=== PATIENT | male | born 1950 | race Caucasian/White ===

== ENCOUNTER → 2018-04-11 16:01 | Outpatient (CLI) | payer MEDICARE, SELFPAY ==
[2018-04-11 16:39] LABS: Basophils # 0.1 K/mm3 (0-0.2); Basophils % 0.6 % (0.1-2.0); Eosinophils # 0.1 K/mm3 (0.0-0.4); Eosinophils % 1.1 % (0.1-12.0); Hematocrit 50.9 % (42.0-52.0); Hemoglobin 16.7 g/dL (14.1-18.0); Lymphocytes # 1.5 K/mm3 (0.7-4.5); Lymphocytes % 19.4 % (10-50); Mean Corpuscular HGB Conc 32.8 g/dL (31.8-35.4); Mean Corpuscular Hemoglobin 30.8 pg (27.0-31.2); Mean Platelet Volume 7.3 fl (7.4-10.4); Monocytes # 0.4 K/mm3 (0.1-1.0); Monocytes % 5.5 % (1.7-9.3); Neutrophils # 5.8 K/mm3 (1.8-7.8); Neutrophils % 73.5 % (37.0-80.0); Platelet Count 237 K/mm3 (142-424); Red Blood Count 5.42 M/mm3 (4.60-6.20); Red Cell Distribution Width 13.1 % (11.5-17.5); White Blood Count 7.9 K/mm3 (4.8-10.8)
[2018-04-11 17:00] LABS: Alanine Aminotransferase 35 U/L (12-78); Albumin Level 4.6 gm/dL (3.4-5.0); Alkaline Phosphatase 93 U/L (46-116); Amylase 68 U/L (25-115); Aspartate Amino Transferase 27 U/L (15-37); Bilirubin,Direct 0.4 mg/dL (0.0-0.2); Bilirubin,Indirect 1.4 mg/dL (0.0-0.9); Bilirubin,Total 1.8 mg/dL (0.2-1.0); Lipase 265 u/L (73-393); Total Protein,Serum 8.2 gm/dL (6.4-8.2)
== END ==
PROVIDERS: Visit Provider Internal Medicine
DX: R10.13 Epigastric pain (principal)
CPT/HCPCS: 80076; 82150; 83690; 85025

== ENCOUNTER → 2018-04-16 08:56 | Outpatient (CLI) | payer MEDICARE, SELFPAY ==
--- NOTE | 2018-04-16 09:01 | US_ITS ---
US abdomen complete HISTORY: ITS.REASON: ELEVATED BILIRUBIN,EPIGASTRIC PAIN ORDERING PHYSICIAN: Franco Mathis PATIENT AGE: 67 years COMPARISON: None FINDINGS: PANCREAS:The pancreas is poorly demonstrated due to overlying bowel gas and patient's body habitus and may be better visualized with CT if clinically warranted LIVER:No focal liver lesions demonstrated. Homogeneous echogenicity. No intrahepatic biliary ductal dilatation evident. There is appropriate directional blood flow within a nondilated portal vein RIGHT KIDNEY:There is some mild cortical irregularity of the right kidney suggesting scarring. No hydronephrosis LEFT KIDNEY:Unremarkable. No hydronephrosis. Normal size and echogenicity. GALLBLADDER:There has been a prior cholecystectomy. No ductal dilatation. The common bile duct is 3 mm. AORTA:The upper abdominal aorta is slightly prominent at 3 cm. Lower abdominal aorta has an unremarkable appearance at 18 mm. SPLEEN:Unremarkable. Normal size and echogenicity ASCITES:None demonstrated. IMPRESSION: 1. Pancreas not well delineated. 2. Prior cholecystectomy without ductal dilatation. 3. Mild cortical scarring of the right kidney
== END ==
PROVIDERS: PCP Internal Medicine; Visit Provider Internal Medicine
DX: E80.7 Disorder of bilirubin metabolism, unspecified (principal); R10.13 Epigastric pain
CPT/HCPCS: 76700

== ENCOUNTER → 2018-04-20 12:49 | Outpatient (CLI) | payer MEDICARE, SELFPAY ==
--- NOTE | 2018-04-20 12:51 | CT_ITS ---
CT abdomen wo con CLINICAL INDICATION: Midepigastric pain ITS.REASON: EPIGASTRIC PAIN ORDERING PHYSICIAN: Franco Mathis PATIENT AGE: 68 years COMPARISON: None TECHNIQUE: Axial images obtained with sagittal and coronal reformats. All CT scans at the facility use one or more dose reduction, viz: automated exposure control, ma/kV adjustment per patient size (including targeted exams where dose is matched to indication, i.e. head), or iterative reconstruction technique. PROCEDURE: Oral Contrast: None IV Contrast: None . FINDINGS: Lower thorax: No acute finding Postcholecystectomy changes. The liver, adrenal glands, and pancreas have an unremarkable appearance. There is mild splenomegaly at 14 cm. No renal or ureteral calculi. No hydronephrosis. There is an exophytic cyst along the lower pole the left kidney at 19 mm. No intestinal obstruction or free air is evident. The pelvis is not imaged on this study in the appendix is not imaged in its entirety. There are degenerative changes in the lumbar spine with prominent sclerosis of L4-L5 on the right. Small sclerotic lesion involves the right aspect of the ileum at 1 cm and may be due to bone island IMPRESSION: 1. No acute upper abdominal findings. 2. Mild splenomegaly
== END ==
PROVIDERS: PCP Internal Medicine; Visit Provider Internal Medicine
DX: R10.13 Epigastric pain (principal)
CPT/HCPCS: 74150

== ENCOUNTER 2019-08-09 13:20 | Emergency (ER) | payer MEDICARE, SELFPAY ==
[2019-08-09 13:37] VITALS: BP 150/88; PULSE 94; RESP 18; TEMP 36.7; O2SAT 96; BMI 27.1
--- NOTE | 2019-08-09 13:42 | HMH.EDUTC ---
[facility] [place]: Dental [place] Disposition: Home, Self-Care Condition on Discharge: Good Instructions: Tooth Abscess Additional Instructions: Take the medications as directed. GO TO THE ER IF YOU START TO HAVE ANY FEVER OR ANY WORSENING SYMPTOMS You have to get in to see a dentist. If you have trouble finding one you could call back here and I'd try to help you find one. Follow up with your regular doctor also. Prescriptions: Ibuprofen [Ibuprofen 800mg Tablet] 800 mg PO Q8HP PRN #30 tab PRN Reason: Moderate Pain Transmission Status: Received by [facility] clindamycin HCL [Clindamycin HCl 300mg Cap] 300 mg PO Q6 10 Days #40 cap Transmission Status: Received by [facility] Referrals: Franco Mathis [Primary Care Provider] - Time of Disposition: 13:47 Medical Decision Making - Medical Records Medical records reviewed: No: I reviewed the patient's medical records. - Wil Inquiry Pt receiving controlled substance: No Vital Signs: 08/09/19 13:37 08/09/19 13:49 Temperature 98.1 F 98.1 F Temperature Source Oral Pulse Rate 94 H Pulse Rate [Right Brachial] 94 H Respiratory Rate 18 18 Blood Pressure 150/88 H Blood Pressure [Right Arm] 150/88 H Blood Pressure Mean [Right Arm] 108 Blood Pressure Source [Right Arm] Automatic Cuff Blood Pressure Position [Right Arm] Sitting 02 Sat by Pulse Oximetry 96 Oxygen Delivery Method Room Air [facility] [place] - General Stated complaint: tooth pain Time Seen by Provider: 08/09/19 13:42 Mode of Arrival: Ambulatory Source of Information: Patient Limitations: No Limitations Description of Symptoms (Recalled from Triage Doc. by RN): PATIENT C/O TOOTH PAIN (CHIPPED TOOTH) AND FACIAL SWELLING TO LEFT SIDE SINCE YESTERDAY, DENIES FEVER HEENT Symptoms (Recalled from RN notes): Yes Resp Symptoms (Recalled from RN notes): No Skin Symptoms (Recalled from RN notes): No MS Symptoms (Recalled from RN notes): No Functional Status (Recalled from RN notes): WNL - History of Present Illness Provider Complaint: He c/o having multiple dental cavities and a broken tooth. He is having swelling around the broken tooth. The swelling extends up to his right maxillary sinus area. He denies any fever, chills, or malaise. He is allergic to pcn and he has never had rocephin that he knows of. - Related Data Home Medications Medication Instructions Recorded Confirmed Amlodipine Besylate [Amlodipine 5 mg PO DAILY 08/09/19 08/09/19 5mg tab] Losartan Potassium [Cozaar 100mg 100 mg PO DAILY 08/09/19 08/09/19 Tablets] Metoprolol Succinate [Metoprolol 100 mg PO DAILY 08/09/19 08/09/19 Succinate 100mg Tablet*] Previous Rx's Medication Instructions Recorded Ibuprofen [Ibuprofen 800mg 800 mg PO Q8HP PRN #30 tab 08/09/19 Tablet] clindamycin HCL [Clindamycin HCl 300 mg PO Q6 10 Days #40 cap 08/09/19 300mg Cap] Allergies Allergy/AdvReac Type Severity Reaction Status Date / Time Penicillins [PENICILLINS] Allergy Unknown I-RASH Verified 08/09/19 13:42 - Worker's Comp Is this a Worker's Comp case?: No [facility] History - Hepatitis A Screen Drug use history?: No High risk sexual behaviors?: No History of sexually transmitted infection?: No Currently employed?: No Childcare worker?: No Do you have indoor plumbing?: Yes Do you have electricity?: Yes Attestation statement:: This patient has been screened for Hepatitis A risk factors. I have reviewed the patient's past medical history: Yes Laterality Cases: Bilateral: Tonsillectomy - Social History Alcohol Intake: never Occupational Status: other ROS Obtained: Yes All systems reviewed & no additional complaints - Constitutional Constitutional: Denies chills, Denies fever(s), Reports poor appetite, Reports malaise - Eyes Eyes: Denies eye discharge - ENT Ears, Nose, Mouth, and Throat: Reports as per HPI Physical Exam - Ge
[2019-08-09 13:49] VITALS: BP 150/88; PULSE 94; RESP 18; TEMP 36.7; O2SAT 96
== END 2019-08-09 13:53 | disposition home or self-care (01) ==
LOC: ER 13:23 → UTC 13:28
PROVIDERS: Emergency Provider Nurse Practitioner Family; PCP Internal Medicine
DX: K04.7 Periapical abscess without sinus (principal); Z88.0 Allergy status to penicillin; K02.9 Dental caries, unspecified
CPT/HCPCS: G0463; 99201

== ENCOUNTER → 2019-11-15 15:09 | Outpatient (CLI) | payer MEDICARE, SELFPAY ==
--- NOTE | 2019-11-15 15:17 | CT_ITS ---
PROCEDURE: CT HEAD/BRAIN WO CON CLINICAL INDICATION: R/O STROKE,CONFUSION,VISUAL DISTURBANCE COMPARISON: No exams were available for comparison TECHNIQUE: Axial images obtained. All CT scans at the facility use one or more dose reduction, viz: automated exposure control, ma/kV adjustment per patient size (including targeted exams where dose is matched to indication, i.e. head), or iterative reconstruction technique. FINDINGS: No midline shift, mass effect, intracranial hemorrhage, hydrocephalus, or extra-axial fluid collection is evident. The calvarium has an unremarkable appearance. No mastoid effusion. No sinus air-fluid level. IMPRESSION: No acute intracranial finding Dictated by: Tadeo Herman MD 11/15/2019 16:02 Tadeo Herman MD in [place] 11/15/2019 16:02
== END ==
PROVIDERS: PCP Internal Medicine; Visit Provider Internal Medicine
DX: G45.9 Transient cerebral ischemic attack, unspecified (principal); H53.129 Transient visual loss, unspecified eye
CPT/HCPCS: 70450

== ENCOUNTER → 2019-11-19 08:14 | Outpatient (CLI) | payer MEDICARE, SELFPAY ==
--- NOTE | 2019-11-19 08:17 | CA_ITS ---
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 Laterality: Bilateral Study Quality: Excellent Indications: VISUAL DISTURBANCE,FACIAL WEAKNESS Doppler Spectral Velocity Analysis dICA (R) 75.70/31.50 cm/s dICA (L) 70.20/27.40 cm/s Gee (R) 63.90/24.70 cm/s Gee (L) 66.40/26.30 cm/s pICA (R) 60.50/16.10 cm/s pICA (L) 62.00/23.40 cm/s dCCA (R) 71.50/22.10 cm/s dCCA (L) 64.80/18.50 cm/s pCCA (R) 99.90/27.80 cm/s pCCA (L) 63.40/21.80 cm/s Vert (R) 60.80/20.30 cm/s Vert (L) 42.60/11.70 cm/s ICA/CCA 1.10 ICA/CCA 1.10 Findings Duplex evaluation demonstrates stenosis of the right proximal internal carotid artery <20% with PSV <140 cm/sec, EDV <100 cm/sec, and IC/CC Ratio <4.0.Duplex evaluation demonstrates stenosis of the left proximal internal carotid artery <20% with PSV <140 cm/sec, EDV <100 cm/sec, and IC/CC Ratio <4.0.Antegrade flow seen bilateral vertebral arteries. Conclusion Duplex evaluation demonstrates stenosis of the right proximal internal carotid artery <20% with PSV <140 cm/sec, EDV <100 cm/sec, and IC/CC Ratio <4.0.Duplex evaluation demonstrates stenosis of the left proximal internal carotid artery <20% with PSV <140 cm/sec, EDV <100 cm/sec, and IC/CC Ratio <4.0.Antegrade flow seen bilateral vertebral arteries. Electronically signed by : Tadeo Herman MD 11/19/2019 16:24:25
== END ==
PROVIDERS: PCP Internal Medicine; Visit Provider Internal Medicine
DX: R29.810 Facial weakness (principal); R40.4 Transient alteration of awareness
CPT/HCPCS: 93880

== ENCOUNTER → 2020-06-01 09:44 | Outpatient (CLI) | payer MEDICARE, SELFPAY ==
--- NOTE | 2020-06-01 09:52 | XR_ITS ---
PROCEDURE: XR KNEE RT 3V CLINICAL INDICATION: RT LATERAL KNEE PAIN,STIFFNESS COMPARISON: CR [id number] KNEE-3 VIEWS-RT from 07/29/2014 FINDINGS: Mild osteoarthritic changes are present involving all 3 compartments. No fracture or dislocation. No lytic or blastic change. Other findings:None. IMPRESSION: Mild tricompartmental osteoarthritis Dictated by: Tadeo Herman MD 06/01/2020 13:19 Tadeo Herman MD in [place] 06/01/2020 13:19
== END ==
PROVIDERS: PCP Internal Medicine; Visit Provider Internal Medicine
DX: M25.561 Pain in right knee (principal); M25.661 Stiffness of right knee, not elsewhere classified
CPT/HCPCS: 73562

== ENCOUNTER 2020-10-14 13:32 | Emergency (ER) | payer MEDICARE, SELFPAY ==
[2020-10-14 14:10] VITALS: BP 138/88; PULSE 89; RESP 19; TEMP 36.6; O2SAT 97; BMI 29.2
--- NOTE | 2020-10-14 15:13 | HMH.EDUTC ---
[facility] [place] Disposition Clinical Impression: Laceration Disposition: Home, Self-Care Condition on Discharge: Good Instructions: Laceration Repair, DI for Laceration Repair, DI for Laceration Repair -- Simple Additional Instructions: Suture instructions: You have required stitches today. Please read the following instructions so you know how to care for them: 1. Keep wound area dry for the first 24 hours. 2 May clean gently with mild soap and water, after 48 hours to prevent crusting over suture knots. 3. You may shower if your provider gives permission but do not take a bath until the skin is healed.. 4. Never leave a wet dressing or Band-Aid on your stitches as this allows bacteria to reach the area and may cause infection. Band-aids can cause the wound to sweat and not recommended to wear for long periods of time Watch for signs of infection: Increasing redness, tenderness or warmth around the suture site Unusual swelling around the site Appearance of pus around each suture or any red streaks Fever If you develop any of the above signs or symptoms of infection, Follow up with Family Physician immediately 5. Suture removal in _10-12___days 6. Return to [facility] or follow up with family doctor for removal. This can be done by any medical provider during regular hours on Monday through Monday, by appointment. Referrals: Franco Mathis [Primary Care Provider] - As needed Time of Disposition: 15:19 Medical Decision Making - Wil Inquiry Pt receiving controlled substance: No Wil was queried for this patient: No Vital Signs: 10/14/20 14:10 10/14/20 15:28 Temperature 97.8 F 97.8 F Temperature Source Oral Pulse Rate 89 Pulse Rate [Left] 89 Respiratory Rate 19 19 Blood Pressure 138/88 Blood Pressure [Right Arm] 138/88 Blood Pressure Mean [Right Arm] 104 02 Sat by Pulse Oximetry 97 Orders (Tests/Meds): ED MEDICATIONS Discontinued Medications Generic Name Dose Route Start Last Admin Trade Name Freq PRN Reason Stop Dose Admin Tetanus/Reduced Diphtheria/Acell Pertussis 0.5 ml 10/14/20 15:16 10/14/20 15:24 Tet/Diphth/Pert-Adult 0.5ml Syringe IM 10/14/20 15:17 0.5 ml .ONCE ONE Administration [facility] [place] HPI - General Stated complaint: AO [id number] left index finger Time Seen by Provider: 10/14/20 14:40 Mode of Arrival: Ambulatory Source of Information: Patient Limitations: No Limitations Description of Symptoms (Recalled from Triage Doc. by RN): pt cut the tip of her L index finger with hedge trimmers. pt is due for tetanus. HEENT Symptoms (Recalled from RN notes): No Resp Symptoms (Recalled from RN notes): No Skin Symptoms (Recalled from RN notes): Yes (lac on L index finger) MS Symptoms (Recalled from RN notes): No Functional Status (Recalled from RN notes): na - History of Present Illness Provider Complaint: Patient states that he was using and electric trimmer climber when he accidently cut his left index finger States he noticed it looked like it needed stitches and he needed to get a tetanus shot so he came in - Related Data Home Medications Medication Instructions Recorded Confirmed Amlodipine Besylate [Amlodipine 5 mg PO DAILY 08/09/19 06/24/20 5mg tab] Losartan Potassium [Cozaar 100mg 100 mg PO DAILY 08/09/19 06/24/20 Tablets] Metoprolol Succinate [Metoprolol 100 mg PO DAILY 08/09/19 06/24/20 Succinate 100mg Tablet*] Previous Rx's Medication Instructions Recorded Ibuprofen [Ibuprofen 800mg 800 mg PO Q8HP PRN #30 tab 08/09/19 Tablet] clindamycin HCL [Clindamycin HCl 300 mg PO Q6 10 Days #40 cap 08/09/19 300mg Cap] Allergies Allergy/AdvReac Type Severity Reaction Status Date / Time Penicillins [PENICILLINS] Allergy Unknown I-RASH Verified 10/14/20 14:13 - Worker's Comp Is this a Worker's Comp case?: No [facility] History - Hepatitis A Screen Drug use history?: No High risk sexual behaviors?: No History of sexually transmitted infe
[2020-10-14 15:28] VITALS: BP 138/88; PULSE 89; RESP 19; TEMP 36.6
== END 2020-10-14 15:39 | disposition home or self-care (01) ==
PROVIDERS: Emergency Provider Nurse Practitioner; PCP Internal Medicine
DX: S61.211A Laceration without foreign body of left index finger without damage to nail, initial encounter (principal); W31.89XA Contact with other specified machinery, initial encounter; Y92.9 Unspecified place or not applicable; Z23 Encounter for immunization; I10 Essential (primary) hypertension; E78.5 Hyperlipidemia, unspecified
CPT/HCPCS: 12001; G0463; 90471; 90715; 99202

== ENCOUNTER 2020-10-26 09:46 | Emergency (ER) | payer MEDICARE, SELFPAY ==
[2020-10-26 10:57] VITALS: BMI 30.6
[2020-10-26 10:58] VITALS: BP 000/00; PULSE 84; RESP 14; TEMP 36.8
== END 2020-10-26 10:59 | disposition home or self-care (01) ==
LOC: UTC 09:50
PROVIDERS: Emergency Provider Nurse Practitioner Family; PCP Internal Medicine
DX: S61.211D Laceration without foreign body of left index finger without damage to nail, subsequent encounter (principal)

== ENCOUNTER → 2020-12-07 09:48 | Outpatient (CLI) | payer MEDICARE, SELFPAY ==
[2020-12-07 11:05] LABS: Alanine Aminotransferase 35 U/L (12-78); Albumin Level 4.6 g/dl (3.5-5.0); Albumin/Globulin Ratio 1.6 (1.1-1.8); Alkaline Phosphatase 104 U/L (38-126); Anion Gap 16.5 mEq/L (5-15); Aspartate Amino Transferase 46 U/L (17-59); Blood Urea Nitrogen 17 mg/dl (9-20); Calcium 9.6 mg/dl (8.4-10.2); Carbon Dioxide 25 mmol/L (22.0-30.0); Chloride 104 mmol/L (98-107); Cholesterol 149 mg/dl (140-200); Estimated Glomerular Filt Rate 84 ml/min (>60); GFR (African American) 102 ML/MIN (>60); Globulin 2.8 g/dL (1.3-3.2); Glucose 133 mg/dl (74-100); HDL Cholesterol 49 mg/dl (40-60); Potassium 4.5 mmoL/L (3.5-5.1); Sodium 141 mmol/L (136-145); Total Protein,Serum 7.4 g/dl (6.3-8.2); Triglycerides 87 mg/dl (30-150); VLDL Cholesterol 17 mg/dL (0-40)
[2020-12-07 11:16] LABS: Direct LDL Cholesterol 76.12 mg/dL (100-129)
[2020-12-08 08:31] LABS: PSA, Free 0.53 ng/mL; Prostate Specific Ag 2.6 ng/mL (0.0-4.0)
== END ==
PROVIDERS: Internal Medicine; Visit Provider Urology
DX: R97.20 Elevated prostate specific antigen [PSA] (principal); Z79.899 Other long term (current) drug therapy
CPT/HCPCS: 36415; 80053; 80061; 84153; 84154

== ENCOUNTER → 2021-01-15 10:37 | Outpatient (CLI) | payer MEDICARE, SELFPAY ==
--- NOTE | 2021-01-15 10:44 | XR_ITS ---
PROCEDURE: XR FOOT RT MIN 3V CLINICAL INDICATION: RT FOOT INJURY COMPARISON: No exams were available for comparison FINDINGS: No fracture or dislocation. No lytic or blastic change. There is normal mineralization. The joint spaces are well-preserved. No significant degenerative/arthritic changes. No erosive changes evident. There is a small plantar calcaneal enthesophyte. The plantar arch is normal. Other findings:None. IMPRESSION: No acute findings. Dictated by: Dr. Luis Eduardo Mccabe MD 01/15/2021 11:43 Dr. Luis Eduardo Mccabe MD in [place] 01/15/2021 11:43
== END ==
PROVIDERS: PCP Internal Medicine; Visit Provider Internal Medicine
DX: S99.921A Unspecified injury of right foot, initial encounter (principal)
CPT/HCPCS: 73630

== ENCOUNTER → 2021-03-02 18:19 | Outpatient (CLI) | payer MEDICARE, SELFPAY ==
[2021-03-02 19:05] LABS: Chloride 104 mmol/L (98-107); Potassium 4.4 mmoL/L (3.5-5.1); Sodium 140 mmol/L (136-145)
[2021-03-02 19:08] LABS: Anion Gap 16.4 mEq/L (5-15); Blood Urea Nitrogen 15 mg/dl (9-20); Carbon Dioxide 24 mmol/L (22.0-30.0); Estimated Glomerular Filt Rate 96 ml/min (>60); GFR (African American) 116 ML/MIN (>60); Glucose 92 mg/dl (74-100)
[2021-03-02 19:44] LABS: Uric Acid 4.5 mg/dl (3.5-8.5)
== END ==
PROVIDERS: Visit Provider Internal Medicine
DX: I10 Essential (primary) hypertension (principal); M10.9 Gout, unspecified
CPT/HCPCS: 80048; 84550

== ENCOUNTER → 2021-06-07 13:39 | Outpatient (CLI) | payer MEDICARE, SELFPAY ==
[2021-06-07 16:24] LABS: Chloride 108 mmol/L (98-107); Sodium 142 mmol/L (136-145)
[2021-06-07 16:26] LABS: Alanine Aminotransferase 36 U/L (12-78); Alkaline Phosphatase 93 U/L (38-126); Aspartate Amino Transferase 46 U/L (17-59); Bilirubin,Total 0.9 mg/dl (0.2-1.3); Blood Urea Nitrogen 12 mg/dl (9-20); Estimated Glomerular Filt Rate 84 ml/min (>60); GFR (African American) 101 ML/MIN (>60)
[2021-06-07 16:27] LABS: Albumin Level 4.2 g/dl (3.5-5.0); Albumin/Globulin Ratio 1.7 (1.1-1.8); Calcium 8.5 mg/dl (8.4-10.2); Carbon Dioxide 26 mmol/L (22.0-30.0); Cholesterol 138 mg/dl (140-200); Globulin 2.5 g/dL (1.3-3.2); Glucose 87 mg/dl (74-100); Total Protein,Serum 6.7 g/dl (6.3-8.2); Triglycerides 214 mg/dl (30-150); VLDL Cholesterol 43 mg/dL (0-40)
[2021-06-07 16:28] LABS: Chol/HDL Ratio 4.2 (1-3.5); HDL Cholesterol 33 mg/dl (40-60)
[2021-06-07 16:39] LABS: Direct LDL Cholesterol 64.39 mg/dL (100-129)
== END ==
PROVIDERS: Visit Provider Internal Medicine
DX: I10 Essential (primary) hypertension (principal); E78.5 Hyperlipidemia, unspecified; R73.9 Hyperglycemia, unspecified; M17.0 Bilateral primary osteoarthritis of knee
CPT/HCPCS: 80053; 80061

== ENCOUNTER → 2021-12-08 13:48 | Outpatient (CLI) | payer MEDICARE, SELFPAY ==
[2021-12-08 17:23] LABS: Basophils # 0.1 K/mm3 (0-0.2); Basophils % 0.8 % (0.1-2.0); Eosinophils # 0.2 K/mm3 (0.0-0.4); Eosinophils % 3.5 % (0.1-12.0); Hemoglobin 15.6 g/dL (14.1-18.0); Lymphocytes # 1.5 K/mm3 (0.7-4.5); Lymphocytes % 26.4 % (10-50); Mean Corpuscular HGB Conc 32.5 g/dL (31.8-35.4); Mean Corpuscular Hemoglobin 31.9 pg (27.0-31.2); Mean Corpuscular Volume 98.3 fl (80-94); Mean Platelet Volume 9.6 fl (7.4-10.4); Monocytes # 0.4 K/mm3 (0.1-1.0); Monocytes % 6.4 % (1.7-9.3); Neutrophils # 3.6 K/mm3 (1.8-7.8); Neutrophils % 62.8 % (37.0-80.0); Platelet Count 220 K/mm3 (142-424); Red Blood Count 4.88 M/mm3 (4.60-6.20); Red Cell Distribution Width 13.4 % (11.5-17.5); White Blood Count 5.7 K/mm3 (4.8-10.8)
[2021-12-08 17:37] LABS: Alanine Aminotransferase 43 U/L (12-78); Albumin Level 4.4 g/dl (3.5-5.0); Albumin/Globulin Ratio 1.7 (1.1-1.8); Alkaline Phosphatase 109 U/L (38-126); Aspartate Amino Transferase 53 U/L (17-59); Bilirubin,Total 1.7 mg/dl (0.2-1.3); Blood Urea Nitrogen 11 mg/dl (9-20); Calcium 9.1 mg/dl (8.4-10.2); Carbon Dioxide 25 mmol/L (22.0-30.0); Chloride 103 mmol/L (98-107); Chol/HDL Ratio 3.7 (1-3.5); Cholesterol 130 mg/dl (140-200); Estimated Glomerular Filt Rate 84 ml/min (>60); GFR (African American) 101 ML/MIN (>60); Globulin 2.6 g/dL (1.3-3.2); Glucose 92 mg/dl (74-100); HDL Cholesterol 35 mg/dl (40-60); Sodium 141 mmol/L (136-145); Triglycerides 148 mg/dl (30-150); VLDL Cholesterol 30 mg/dL (0-40)
[2021-12-08 17:47] LABS: Direct LDL Cholesterol 66.36 mg/dL (100-129)
== END ==
PROVIDERS: PCP Internal Medicine; Visit Provider Internal Medicine
DX: I10 Essential (primary) hypertension (principal); E78.5 Hyperlipidemia, unspecified; K21.9 Gastro-esophageal reflux disease without esophagitis; Z12.5 Encounter for screening for malignant neoplasm of prostate
CPT/HCPCS: 80053; 80061; 85025; G0103

== ENCOUNTER → 2022-07-12 12:19 | Outpatient (CLI) | payer MEDICARE, SELFPAY ==
[2022-07-12 13:46] LABS: Alanine Aminotransferase 81 U/L (12-78); Albumin Level 4.5 g/dl (3.5-5.0); Albumin/Globulin Ratio 1.7 (1.1-1.8); Alkaline Phosphatase 110 U/L (38-126); Aspartate Amino Transferase 91 U/L (17-59); Bilirubin,Total 1.9 mg/dl (0.2-1.3); Blood Urea Nitrogen 11 mg/dl (9-20); Carbon Dioxide 24 mmol/L (22.0-30.0); Chloride 106 mmol/L (98-107); Chol/HDL Ratio 3.7 (1-3.5); Cholesterol 142 mg/dl (140-200); Estimated Glomerular Filt Rate 96 ml/min (>60); GFR (African American) 116 ML/MIN (>60); Globulin 2.7 g/dL (1.3-3.2); Glucose 112 mg/dl (74-100); HDL Cholesterol 38 mg/dl (40-60); Sodium 139 mmol/L (136-145); Total Protein,Serum 7.2 g/dl (6.3-8.2); Triglycerides 164 mg/dl (30-150); VLDL Cholesterol 33 mg/dL (0-40)
[2022-07-12 13:57] LABS: Direct LDL Cholesterol 76.08 mg/dL (100-129)
== END ==
PROVIDERS: PCP Internal Medicine; Visit Provider Internal Medicine
DX: I10 Essential (primary) hypertension (principal); E78.5 Hyperlipidemia, unspecified; F51.02 Adjustment insomnia; K21.9 Gastro-esophageal reflux disease without esophagitis; M17.0 Bilateral primary osteoarthritis of knee
CPT/HCPCS: 80053; 80061

== ENCOUNTER → 2022-07-19 08:09 | Outpatient (CLI) | payer MEDICARE, SELFPAY ==
--- NOTE | 2022-07-19 08:13 | US_ITS ---
FINAL REPORT CLINICAL HISTORY: ELEVATED LIVER ENZYME FINDINGS: RIGHT UPPER QUADRANT ULTRASOUND Sonographic images of the right upper quadrant were obtained. The pancreas is partially obscured. There is fatty infiltration of the liver. The gallbladder is absent. The common duct is normal. Limited images of the right kidney are normal. IMPRESSION: Fatty liver. Status post cholecystectomy. Reviewed, Interpreted and Dictated by Octavio Olmstead MD Transcribed by Bindu Carlson Authenticated and [facility]
== END ==
PROVIDERS: PCP Internal Medicine; Visit Provider Internal Medicine
DX: R94.5 Abnormal results of liver function studies (principal); R74.8 Abnormal levels of other serum enzymes
CPT/HCPCS: 76705

== ENCOUNTER → 2023-01-13 15:13 | Outpatient (CLI) | payer MEDICARE, SELFPAY ==
[2023-01-13 16:12] LABS: Basophils % 0.2 % (0.1-2.0); Eosinophils # 0.1 K/mm3 (0.0-0.4); Eosinophils % 2.8 % (0.1-12.0); Hematocrit 46.7 % (42.0-52.0); Hemoglobin 16.1 g/dL (14.1-18.0); Lymphocytes # 1.1 K/mm3 (0.7-4.5); Lymphocytes % 22.9 % (10-50); Mean Corpuscular HGB Conc 34.5 g/dL (31.8-35.4); Mean Corpuscular Hemoglobin 33.5 pg (27.0-31.2); Mean Corpuscular Volume 97.3 fl (80-94); Mean Platelet Volume 9.4 fl (7.4-10.4); Monocytes # 0.3 K/mm3 (0.1-1.0); Neutrophils # 3.2 K/mm3 (1.8-7.8); Platelet Count 162 K/mm3 (142-424); Red Cell Distribution Width 12.9 % (11.5-17.5); White Blood Count 4.8 K/mm3 (4.8-10.8)
[2023-01-13 16:55] LABS: Chol/HDL Ratio 3.1 (1-3.5); Cholesterol 154 mg/dl (140-200); HDL Cholesterol 49 mg/dl (40-60); Triglycerides 100 mg/dl (30-150); VLDL Cholesterol 20 mg/dL (0-40)
[2023-01-13 17:06] LABS: Direct LDL Cholesterol 88.88 mg/dL (100-129)
[2023-01-13 17:29] LABS: Prostate Specific Ag Screen 2.4 ng/ml (0.0-4.0)
[2023-01-13 17:42] LABS: Chloride 105 mmol/L (98-107); Sodium 140 mmol/L (136-145)
[2023-01-13 17:44] LABS: Blood Urea Nitrogen 13 mg/dl (9-20); Estimated Glomerular Filt Rate 96 ml/min (>60); GFR (African American) 116 ML/MIN (>60)
[2023-01-13 17:45] LABS: Alanine Aminotransferase 68 U/L (12-78); Albumin Level 4.7 g/dl (3.5-5.0); Albumin/Globulin Ratio 1.8 (1.1-1.8); Alkaline Phosphatase 108 U/L (38-126); Aspartate Amino Transferase 78 U/L (17-59); Bilirubin,Total 2.7 mg/dl (0.2-1.3); Calcium 9.2 mg/dl (8.4-10.2); Carbon Dioxide 23 mmol/L (22.0-30.0); Globulin 2.6 g/dL (1.3-3.2); Glucose 84 mg/dl (74-100); Total Protein,Serum 7.3 g/dl (6.3-8.2)
== END ==
PROVIDERS: PCP Internal Medicine; Visit Provider Internal Medicine
DX: I10 Essential (primary) hypertension (principal); Z12.5 Encounter for screening for malignant neoplasm of prostate; K21.9 Gastro-esophageal reflux disease without esophagitis; M17.0 Bilateral primary osteoarthritis of knee; E78.5 Hyperlipidemia, unspecified; N40.1 Benign prostatic hyperplasia with lower urinary tract symptoms; M10.9 Gout, unspecified
CPT/HCPCS: 80053; 80061; 85025; G0103

== ENCOUNTER 2023-07-14 16:56 | Outpatient (CLI) | payer MEDICARE, SELFPAY ==
[2023-07-14 18:01] LABS: Alanine Aminotransferase 22 U/L (12-78); Albumin Level 4.3 g/dl (3.5-5.0); Albumin/Globulin Ratio 1.5 (1.1-1.8); Alkaline Phosphatase 91 U/L (38-126); Anion Gap 15.6 mEq/L (5-15); Aspartate Amino Transferase 34 U/L (17-59); Bilirubin,Total 2.6 mg/dl (0.2-1.3); Blood Urea Nitrogen 18 mg/dl (9-20); Calcium 9.8 mg/dl (8.4-10.2); Carbon Dioxide 24 mmol/L (22.0-30.0); Chloride 107 mmol/L (98-107); Chol/HDL Ratio 4.4 (1-3.5); Cholesterol 140 mg/dl (140-200); Estimated Glomerular Filt Rate 83 ml/min (>60); GFR (African American) 101 ML/MIN (>60); Globulin 2.8 g/dL (1.3-3.2); Glucose 83 mg/dl (74-100); HDL Cholesterol 32 mg/dl (40-60); Potassium 4.6 mmoL/L (3.5-5.1); Sodium 142 mmol/L (136-145); Total Protein,Serum 7.1 g/dl (6.3-8.2); Triglycerides 112 mg/dl (30-150); VLDL Cholesterol 22 mg/dL (0-40)
[2023-07-14 18:12] LABS: Direct LDL Cholesterol 78.85 mg/dL (100-129)
== END 2023-07-14 23:59 | disposition home or self-care (01) ==
LOC: LAB.DROPOF 16:57
PROVIDERS: PCP Internal Medicine; Visit Provider Internal Medicine
DX: I10 Essential (primary) hypertension (principal); K21.9 Gastro-esophageal reflux disease without esophagitis; M17.0 Bilateral primary osteoarthritis of knee; E78.5 Hyperlipidemia, unspecified; N40.1 Benign prostatic hyperplasia with lower urinary tract symptoms
CPT/HCPCS: 80053; 80061

== ENCOUNTER 2023-07-24 15:43 | Outpatient (CLI) | payer MEDICARE, SELFPAY ==
[2023-07-24 16:41] LABS: Basophils % 0.7 % (0.1-2.0); Eosinophils # 0.2 K/mm3 (0.0-0.4); Eosinophils % 3.1 % (0.1-12.0); Hematocrit 44.5 % (42.0-52.0); Hemoglobin 14.6 g/dL (14.1-18.0); Lymphocytes % 31.6 % (10-50); Mean Corpuscular HGB Conc 32.9 g/dL (31.8-35.4); Mean Corpuscular Hemoglobin 30.9 pg (27.0-31.2); Mean Corpuscular Volume 93.8 fl (80-94); Mean Platelet Volume 8.6 fl (7.4-10.4); Monocytes # 0.4 K/mm3 (0.1-1.0); Neutrophils # 3.7 K/mm3 (1.8-7.8); Neutrophils % 58.5 % (37.0-80.0); Platelet Count 203 K/mm3 (142-424); Red Blood Count 4.74 M/mm3 (4.60-6.20); Red Cell Distribution Width 13.8 % (11.5-17.5); Reticulocyte % (Auto) 2.4 % (0.9-3.2); White Blood Count 6.4 K/mm3 (4.8-10.8)
[2023-07-24 17:20] LABS: Bilirubin,Direct 0.2 mg/dl (0.0-0.4); Bilirubin,Indirect 1.4 mg/dL (0.0-0.9); Bilirubin,Total 1.6 mg/dl (0.2-1.3)
== END 2023-07-24 23:59 | disposition home or self-care (01) ==
LOC: LAB.DROPOF 15:44
PROVIDERS: PCP Internal Medicine; Visit Provider Internal Medicine
DX: R17 Unspecified jaundice (principal)
CPT/HCPCS: 82247; 82248; 85025; 85044

== ENCOUNTER 2024-01-11 13:28 | Outpatient (CLI) | payer MEDICARE, SELFPAY ==
[2024-01-11 14:17] LABS: Alanine Aminotransferase 35 U/L (12-78); Albumin Level 4.5 g/dl (3.5-5.0); Albumin/Globulin Ratio 1.7 (1.1-1.8); Alkaline Phosphatase 81 U/L (38-126); Anion Gap 13.1 mEq/L (5-15); Aspartate Amino Transferase 39 U/L (17-59); Bilirubin,Total 1.6 mg/dl (0.2-1.3); Blood Urea Nitrogen 12 mg/dl (9-20); Calcium 9.6 mg/dl (8.4-10.2); Carbon Dioxide 22 mmol/L (22.0-30.0); Chloride 110 mmol/L (98-107); Chol/HDL Ratio 4.2 (1-3.5); Cholesterol 122 mg/dl (140-200); Estimated Glomerular Filt Rate 83 ml/min (>60); GFR (African American) 101 ML/MIN (>60); Globulin 2.6 g/dL (1.3-3.2); Glucose 86 mg/dl (74-100); HDL Cholesterol 29 mg/dl (40-60); Potassium 4.1 mmoL/L (3.5-5.1); Sodium 141 mmol/L (136-145); Total Protein,Serum 7.1 g/dl (6.3-8.2); Triglycerides 125 mg/dl (30-150); VLDL Cholesterol 25 mg/dL (0-40)
[2024-01-11 14:27] LABS: Direct LDL Cholesterol 73.51 mg/dL (100-129)
[2024-01-11 14:47] LABS: Prostate Specific Ag Screen 2.8 ng/ml (0.0-4.0)
== END 2024-01-11 23:59 | disposition home or self-care (01) ==
LOC: LAB.DROPOF 13:28
PROVIDERS: PCP Internal Medicine; Visit Provider Internal Medicine
DX: I10 Essential (primary) hypertension (principal); E78.5 Hyperlipidemia, unspecified; Z12.5 Encounter for screening for malignant neoplasm of prostate
CPT/HCPCS: 80053; 80061; G0103

== ENCOUNTER 2024-07-11 11:15 | Outpatient (CLI) | payer MEDICARE, SELFPAY ==
[2024-07-11 15:01] LABS: Basophils # 0.1 K/mm3 (0-0.2); Basophils % 1.3 % (0.1-2.0); Eosinophils # 0.1 Kmm3 (0.0-0.4); Eosinophils % 2.7 % (0.1-12.0); Hemoglobin 15.6 g/dL (14.1-18.0); Lymphocytes # 1.5 K/mm3 (0.7-4.5); Lymphocytes % 28.1 % (10-50); Mean Corpuscular HGB Conc 34.7 g/dL (31.8-35.4); Mean Corpuscular Hemoglobin 31.6 pg (27.0-31.2); Mean Corpuscular Volume 91.1 fl (80-94); Mean Platelet Volume 10.4 fl (7.4-10.4); Monocytes # 0.4 K/mm3 (0.1-1.0); Monocytes % 8.3 % (1.7-9.3); Neutrophils # 3.1 K/mm3 (1.8-7.8); Neutrophils % 59.4 % (37.0-80.0); Nucleated Red Blood Cells # 0 10^3/uL; Nucleated Red Blood Cells % 0 %; Platelet Count 201 K/mm3 (142-424); Red Blood Count 4.94 M/mm3 (4.60-6.20); Red Cell Distribution Width 12.9 % (11.5-17.5); Red Cell Distribution Width-SD 43.3 fL; White Blood Count 5.2 K/mm3 (4.8-10.8)
[2024-07-11 15:42] LABS: Albumin Level 4.5 g/dl (3.5-5.0); Chloride 108 mmol/L (98-107); Potassium 3.8 mmoL/L (3.5-5.1); Sodium 140 mmol/L (136-145)
[2024-07-11 15:45] LABS: Alanine Aminotransferase 63 U/L (12-78); Albumin/Globulin Ratio 1.5 (1.1-1.8); Alkaline Phosphatase 111 U/L (38-126); Anion Gap 11.8 mEq/L (5-15); Aspartate Amino Transferase 82 U/L (17-59); Bilirubin,Total 2.4 mg/dl (0.2-1.3); Blood Urea Nitrogen 15 mg/dl (9-20); Calcium 9.3 mg/dl (8.4-10.2); Carbon Dioxide 24 mmol/L (22.0-30.0); Cholesterol 155 mg/dl (140-200); Estimated Glomerular Filt Rate 95 ml/min (>60); GFR (African American) 115 ML/MIN (>60); Glucose 117 mg/dl (74-100); HDL Cholesterol 39 mg/dl (40-60); Total Protein,Serum 7.5 g/dl (6.3-8.2); Triglycerides 149 mg/dl (30-150); VLDL Cholesterol 30 mg/dL (0-40)
== END 2024-07-11 23:59 | disposition home or self-care (01) ==
LOC: LAB.DROPOF 07-12 09:59
PROVIDERS: PCP Internal Medicine; Visit Provider Internal Medicine
DX: E78.5 Hyperlipidemia, unspecified (principal); I10 Essential (primary) hypertension; M17.0 Bilateral primary osteoarthritis of knee
CPT/HCPCS: 80053; 80061; 85025

== ENCOUNTER 2025-01-09 10:03 | Outpatient (CLI) | payer MEDICARE, SELFPAY ==
[2025-01-09 15:22] LABS: Albumin Level 4.2 g/dl (3.5-5.0); Chloride 103 mmol/L (98-107); Potassium 3.8 mmoL/L (3.5-5.1); Sodium 136 mmol/L (136-145)
[2025-01-09 15:24] LABS: Blood Urea Nitrogen 15 mg/dl (9-20); Creatinine,Serum 0.90 mg/dl (0.66-1.25); Estimated Glomerular Filt Rate 83 ml/min (>60); GFR (African American) 100 ML/MIN (>60)
[2025-01-09 15:25] LABS: Alanine Aminotransferase 25 U/L (12-78); Albumin/Globulin Ratio 1.4 (1.1-1.8); Alkaline Phosphatase 98 U/L (38-126); Anion Gap 10.8 mEq/L (5-15); Aspartate Amino Transferase 34 U/L (17-59); Bilirubin,Total 2.3 mg/dl (0.2-1.3); Calcium 8.9 mg/dl (8.4-10.2); Carbon Dioxide 26 mmol/L (22.0-30.0); Cholesterol 120 mg/dl (140-200); Globulin 2.9 g/dL (1.3-3.2); Glucose 90 mg/dl (74-100); HDL Cholesterol 32 mg/dl (40-60); Total Protein,Serum 7.1 g/dl (6.3-8.2); Triglycerides 93 mg/dl (30-150)
== END 2025-01-09 23:59 ==
LOC: LAB.DROPOF 01-13 10:06
PROVIDERS: PCP Internal Medicine; Visit Provider Internal Medicine
DX: I10 Essential (primary) hypertension (principal); E78.5 Hyperlipidemia, unspecified; M17.0 Bilateral primary osteoarthritis of knee
CPT/HCPCS: 80053; 80061